=== PATIENT | female | born 1995 | race African-American/Black ===

== ENCOUNTER 2023-11-05 03:34 | Emergency (ER) | payer SELFPAY ==
[~2023-11-05] VITALS: Ht 170.2 cm; Wt 108.0 kg
[2023-11-05 03:44] VITALS: BP 105/54; PULSE 70; RESP 18; TEMP 97.9; O2SAT 100
== END 2023-11-05 04:37 | disposition left against medical advice (07) ==
LOC: ER 04:34
DX: J11.1 Influenza due to unidentified influenza virus with other respiratory manifestations (principal); Z53.21 Procedure and treatment not carried out due to patient leaving prior to being seen by health care provider
CPT/HCPCS: 99281